=== PATIENT | male | born 1990 | race Caucasian/White ===

== ENCOUNTER 2019-08-30 12:45 | Emergency (ER) | payer SELFPAY ==
[~2019-08-30] VITALS: Ht 177.8 cm; Wt 77.1 kg
[2019-08-30 13:05] VITALS: BP 160/69
[2019-08-30 13:28] LABS: BILIRUBIN,URINE NEGATIVE (NEG); CLARITY,URINE TURBID; COLOR,URINE YELLOW; NITRITE,URINE NEGATIVE (NEG); PROTEIN,URINE NEGATIVE (NEG-TRACE); UROBILINOGEN,URINE 0.2 mg/dL (0.2 mg/dL)
[2019-08-30 13:40] LABS: BACTERIA,URINE 0 /HPF (0-FEW); WBC,URINE TNTC /HPF (0-4)
[2019-08-30] MEDS ORDERED: AZITHROMYCIN 250 MG TABLET. ONE (13:44)
[2019-08-30] MEDS ORDERED: CIPR500T94 PO (13:48)
--- NOTE | 2019-08-30 13:48 | PHYS DOC ---
Past Medical History Past Medical History: No Pertinent History Past Surgical History: No Surgical History Alcohol Use: None Drug Use: None Adult General Chief Complaint Chief Complaint: PAIN ON URINATION HPI HPI Patient is a 29 year old male who presents to the ER with complaints of painful urination and abnormal yellow discharge from his penis for the last 4 days. Pt denies any nausea, vomiting, diarrhea, abdominal pain, fever, increased urine frequency, difficulty voiding, back pain, or hematuria. Pt reports concern of a possible sexually transmitted infection. Pt currently rates his discomfort a 4/10 on the pain scale, he denies any alleviating factors. All other ROS is neg unless otherwise noted in HPI. Review of Systems Review of Systems See Above Current Medications Current Medications Current Medications Medications (Trade) Dose Ordered Sig/Jes Start Time Stop Time Status Last Admin Dose Admin Azithromycin (Zithromax) 250 mg STK-MED ONCE 08/30/19 13:44 08/30/19 13:44 DC Ceftriaxone Sodium (Rocephin Im) 250 mg 1X ONCE 08/30/19 14:00 08/30/19 14:01 08/30/19 13:47 250 MG Allergies Allergies Allergies Coded Allergies Type Severity Reaction Last Updated Verified No Known Drug Allergies 08/30/19 No Physical Exam Physical Exam See Above Constitutional: Well developed, well nourished, no acute distress, non-toxic appearance. [] HENT: Normocephalic, atraumatic, bilateral external ears normal, nose normal. [] Eyes: PERRLA, EOMI, conjunctiva normal, no discharge. [] Neck: Normal range of motion, no stridor. [] Cardiovascular:Heart rate regular rhythm, Lungs & Thorax: Respirations even and unlabored, no retractions, no respiratory distress Skin: Warm, dry, no erythema, no rash. [] Extremities: No cyanosis, ROM intact Neurologic: Alert and oriented X 3, no focal deficits noted. [] Psychologic: Affect normal, judgement normal, mood normal. [] Current Patient Data Vital Signs Vital Signs Date Time Temp Pulse Resp B/P (MAP) Pulse Ox O2 Delivery O2 Flow Rate FiO2 08/30/19 13:05 98.1 98 16 160/69 (99) 99 Room Air 98.1 Lab Values Laboratory Tests Test 08/30/19 13:05 Urine Collection Type Unknown Urine Color Yellow Urine Clarity Turbid Urine pH 6.0 Urine Specific [place] 1.025 Urine Protein Negative mg/dL (NEG-TRACE) Urine Glucose (UA) Negative mg/dL (NEG) Urine Ketones (Stick) Negative mg/dL (NEG) Urine Blood Small (NEG) Urine Nitrite Negative (NEG) Urine Bilirubin Negative (NEG) Urine Urobilinogen Dipstick 0.2 mg/dL (0.2 mg/dL) Urine Leukocyte Esterase Moderate (NEG) Urine RBC 3-5 /HPF (0-2) Urine WBC Tntc /HPF (0-4) Urine Bacteria 0 /HPF (0-FEW) Urine Mucus Marked /LPF EKG EKG [] Radiology/Procedures Radiology/Procedures [] Course & Med Decision Making Course & Med Decision Making Pertinent Labs and Imaging studies reviewed. (See chart for details) UA positive for leukocytes, too many to count, suspected STI is the cause for the urinary tract infection however prescription for Cipro 500 mg by mouth twice a day 3 days is written. Patient was treated prophylactically with 250 mg of IM Rocephin, and 1 g of PO Zithromax. Patient was instructed to avoid having intercourse until the results of gonorrhea and chlamydia testing are available, patient was notified that these results would not be available for 48 hours. If one or both of these tests is positive, patient needs to refrain from intercourse for approximately 1 week following the treatment of any current partners. Pt verbalized an understanding of home care, medications, follow-up, and return to ED instructions and was in agreement with the plan of care. [] Dragon Disclaimer Dragon Disclaimer This electronic medical record was generated, in whole or in part, using a voice recognition dictation system. Departure Departure Impression: Primary Impression: Dysuria Additional Impressions: Abnormal penile discharge, without blood Contact with and (suspected) exposure to infections with a predominantly sexual mode of transmission UTI (urinary tract infection) Disposition: 01 HOME, SELF-CARE Referrals: NO PCP (PCP) Patient Instructions: Dysuria, Sexually Transmitted Disease, [id number], Urinary Tract Infection, [id number] Additional Instructions: Fill the prescription and use as directed. Avoid bladder irritants such as caffeine, carbonation, and spicy foods. Increase clear fluids. Recommend that you go to your local health department for comprehensive sexually transmitted disease testing. You have been treated for a suspected gonorrhea and chlamydia. Avoid having intercourse until the results of gonorrhea and chlamydia testing are available, these results will not be available for 48 hours. If one or both of these tests is positive, you need to refrain from intercourse for approximately 1 week following the treatment of any current partners. Follow-up with your primary care doctor if symptoms persist, return to ER symptoms worsen. Scripts Ciprofloxacin Hcl (CIPRO) 500 Mg Tablet 1 TAB PO BID for 3 Days, #6 TAB 0 Refills Prov: TANIA SEPULVEDA APRN 08/30/19 Problem Qualifiers TANIA SEPULVEDA APRN Aug 30, 2019 13:48
[2019-08-30] MEDS ORDERED: AZITHROMYCIN 250 MG TABLET. PO ONE (14:00)
[2019-08-30] MEDS ORDERED: cefTRIAXone IM 250 MG VIAL IM ONE (14:00)
== END 2019-08-30 14:06 | disposition home or self-care (01) ==
LOC: ER 12:45
DX: R30.0 Dysuria (principal); R36.9 Urethral discharge, unspecified; N39.0 Urinary tract infection, site not specified; Z20.2 Contact with and (suspected) exposure to infections with a predominantly sexual mode of transmission
CPT/HCPCS: 81001; 87086; 87491; 87591; 96372; 99284; J0696; Q0144